=== PATIENT | male | born 1955 | race Caucasian/White ===

== ENCOUNTER 2025-02-10 21:57 | Inpatient (IN) | payer MEDICAID, SELFPAY ==
[2025-02-10 14:41] VITALS: BP 151/91
[2025-02-10 15:15] LABS: Hematocrit 39.5 % (39.0-52.0); Hemoglobin 12.4 g/dL (13.0-18.0); Mean Corp Hgb Conc. 31.4 g/dL (33.0-37.0); Mean Corpuscular Volume 85.7 fL (80.0-94.0); Nucleated Red Blood Cells % 0 % (-); Platelet Count 455 10^3/uL (130-400); Red Cell Dist. Width 14.4 % (11.5-14.5)
[2025-02-10 15:23] LABS: COVID-19 Antigen Negative (Negative)
[2025-02-10 15:30] LABS: ALT (SGPT) 22 U/L (0-50); AST (SGOT) 19 U/L (17-59); Albumin 3.9 g/dl (3.5-5.0); Alkaline Phosphatase 130 U/L (38-126); Blood Urea Nitrogen 17 mg/dl (9-20); Calcium 9.2 mg/dl (8.4-10.2); Carbon Dioxide 22 mmol/L (22-30); Chloride 103 mmol/L (98-107); Glucose 136 mg/dl (70-99); Potassium 4.5 mmol/L (3.5-5.1); Sodium 137 mmol/L (135-145); Total Protein 7.3 g/dl (6.3-8.2); eGFR > 60.00
--- NOTE | 2025-02-10 16:19 | ED.GENMED ---
History of Present Illness
<Diana Currie NP - Last Filed: 02/10/25 22:39>
General
Chief Complaint: Breathing Problem
Source: patient
Exam Limitations: none
Time Seen by Provider: 02/10/25 16:13
Nursing documentation reviewed up to this point in time: agreed with
History of Present Illness
History of Present Illness:
Patient to emergency department for evaluation of shortness of breath. States symptoms for started approximately 2 weeks ago. He denies any fever or chills. Reports that his shortness of breath continues to worsen. He now reports dizziness when
he stands. Brought to the emergency department by EMS for evaluation.
Past History
<Diana Currie CAN FILLER - Last Filed: 02/10/25 22:39>
Past History
ED Past Medical History: Psychiatric (Depression)
Review of Systems
<Diana Currie NP - Last Filed: 02/10/25 22:39>
Review of Systems
Allergies reviewed?: Yes
All Other Systems: ROS reviewed and negative except as documented in HPI and ROS
Constitutional: Reports fatigue
EENT: Reports no symptoms
Respiratory: Reports cough and trouble breathing
Cardiac: Reports no symptoms
ABD/GI: Reports no symptoms
: Reports no symptoms
Musculoskeletal: Reports no symptoms
Neurological: Reports dizzy and weakness
Psychiatric: Reports no symptoms
Phy Exam
<Diana Currie CAN FILLER - Last Filed: 02/10/25 22:39>
General Physical Exam
General Presentation: moderate distress
General age: appears stated age
General Skin: warm and dry
General Habitus: normal
General Mental: alert
Cardiovascular Exam
Cardiovascular Exam: regular rate/rhythm and no edema
Pulmonary Exam
Pulmonary Exam: chest non tender and decreased breath sounds (Bilateral lower lobes)
Gastrointestinal Exam
Gastrointestinal Exam: non tender and soft
Musculoskeletal Exam
Musculoskeletal Exam: full ROM and neuro vasc intact
Skin Exam
Skin Exam: normal color, warm/dry and no rash
Psychiatric Exam
Psychiatric Exam: normal mood/affect
Scores
<Diana Currie CAN FILLER - Last Filed: 02/10/25 22:39>
Heart Failure Risk
Heart Failure Risk Score: Not Applicable
Course
<Diana Currie CAN FILLER - Last Filed: 02/10/25 22:39>
Orders/Labs/Results
Orders:
Orders
02/10/25 14:44
Electrocardiogram (*1) Urgent
Reason for Study: Shortness of Breath
02/10/25 14:45
EKG- Treatment ONCE
CR Chest - 2 Views Urgent
Comment:
Reason For Exam: shortness of breath
02/10/25 14:58
COVID-19 Antigen Urgent
Source: Nasal Swab
Complete Blood Count/With Diff Urgent
Comprehensive Metabolic Panel Urgent
Influenza A+B Rapid Molecular Urgent
ANA Source: Nasal Swab
Specimen Description:
02/10/25 16:42
Troponin I Urgent
02/10/25 16:[address] [CT Chest PE Study] Urgent
Comment:
Reason For Exam: chest pain/SOB
02/10/25 20:33
CefTRIAXone [Rocephin] 1,000 mg IV NOW STA
Doxycycline [Vibramycin] 100 mg PO NOW STA
02/10/25 21:13
Admit/Transfer Patient As Directed
Co-Sign Provider:
Level of Care: Inpatient admission
Assign to:: Medical/Surgical
Physician / Group: Juan R
Diagnosis: Multifocal Pneumonia
Reason for Hospitalization: Multifocal Pneumonia
Expected length of stay greater than two midnights?: Yes
ELOS- Estimated Length of Stay in days: 2
I certify the patient meets the requirements for IP care: Yes
02/10/25 21:14
PRN Pain Medication Management As Directed
May give lesser potent ordered pain med per pt: Yes
preference::
Protocol:: Medication orders for pain may be administered in a
manner that supports deferring to patient preference
when the pt is:
- Requesting an ordered lesser potent pain medication.
Least to most potent pain medications are defined
as: acetaminophen < NSAID < tramadol < opioids
(morphine, oxycodone, hydromorphone).
- Requesting a lesser dose of the same medication IF
ORDERED.
- Requesting a less intrusive route of administration
if both routes are prescribed by the provider (PO <
IV).
02/10/25 21:15
Code Status As Directed
Resuscitation Status: Full Code
Abnormal Lab Results
02/10/25
14:58
WBC 10.9 H 10^3/uL
(4.8-10.8)
RBC 4.61 L 10^6/uL
(4.70-6.10)
Hgb 12.4 L g/dL
(13.0-18.0)
MCH 26.9 L pg
(27.0-31.0)
MCHC 31.4 L g/dL
(33.0-37.0)
Plt Count 455 H 10^3/uL
(130-400)
Abs Immat Gran (auto) 0.1 H 10^3/uL
(0-0.05)
Absolute Neuts (auto) 7.5 H 10^3/uL
(1.4-6.5)
Absolute Monos (auto) 0.7 H 10^3/uL
(0.1-0.6)
Glucose 136 H mg/dl
(70-99)
Alkaline Phosphatase 130 H U/L
(38-126)
02/10/25 14:58
02/10/25 14:58
Vital Signs
Initial and Last Documented VS:
Initial Vital Signs
Temp Pulse Resp BP Pulse Ox
97.7 F 108 22 151/91 99
02/10/25 14:41 02/10/25 14:41 02/10/25 14:41 02/10/25 14:41 02/10/25 14:41
Last Documented Vital Signs
Temp Pulse Resp BP Pulse Ox
98.5 F 66 21 116/74 98
02/10/25 16:45 02/10/25 18:45 02/10/25 18:45 02/10/25 17:00 02/10/25 18:45
<Nohemy Woodard MD - Last Filed: 02/10/25 20:15>
Orders/Labs/Results
Orders:
Orders
02/10/25 14:44
Electrocardiogram (*1) Urgent
Reason for Study: Shortness of Breath
02/10/25 14:45
EKG- Treatment ONCE
CR Chest - 2 Views Urgent
Comment:
Reason For Exam: shortness of breath
02/10/25 14:58
COVID-19 Antigen Urgent
Source: Nasal Swab
Complete Blood Count/With Diff Urgent
Comprehensive Metabolic Panel Urgent
Influenza A+B Rapid Molecular Urgent
ANA Source: Nasal Swab
Specimen Description:
02/10/25 16:42
Troponin I Urgent
02/10/25 16:[address] [CT Chest PE Study] Urgent
Comment:
Reason For Exam: chest pain/SOB
02/10/25 20:33
CefTRIAXone [Rocephin] 1,000 mg IV NOW STA
Doxycycline [Vibramycin] 100 mg PO NOW STA
02/10/25 21:13
Admit/Transfer Patient As Directed
Co-Sign Provider:
Level of Care: Inpatient admission
Assign to:: Medical/Surgical
Physician / Group: Juan R
Diagnosis: Multifocal Pneumonia
Reason for Hospitalization: Multifocal Pneumonia
Expected length of stay greater than two midnights?: Yes
ELOS- Estimated Length of Stay in days: 2
I certify the patient meets the requirements for IP care: Yes
02/10/25 21:14
PRN Pain Medication Management As Directed
May give lesser potent ordered pain med per pt: Yes
preference::
Protocol:: Medication orders for pain may be administered in a
manner that supports deferring to patient preference
when the pt is:
- Requesting an ordered lesser potent pain medication.
Least to most potent pain medications are defined
as: acetaminophen < NSAID < tramadol < opioids
(morphine, oxycodone, hydromorphone).
- Requesting a lesser dose of the same medication IF
ORDERED.
- Requesting a less intrusive route of administration
if both routes are prescribed by the provider (PO <
IV).
02/10/25 21:15
Code Status As Directed
Resuscitation Status: Full Code
Abnormal Lab Results
02/10/25
14:58
WBC 10.9 H 10^3/uL
(4.8-10.8)
RBC 4.61 L 10^6/uL
(4.70-6.10)
Hgb 12.4 L g/dL
(13.0-18.0)
MCH 26.9 L pg
(27.0-31.0)
MCHC 31.4 L g/dL
(33.0-37.0)
Plt Count 455 H 10^3/uL
(130-400)
Abs Immat Gran (auto) 0.1 H 10^3/uL
(0-0.05)
Absolute Neuts (auto) 7.5 H 10^3/uL
(1.4-6.5)
Absolute Monos (auto) 0.7 H 10^3/uL
(0.1-0.6)
Glucose 136 H mg/dl
(70-99)
Alkaline Phosphatase 130 H U/L
(38-126)
02/10/25 14:58
02/10/25 14:58
Vital Signs
Initial and Last Documented VS:
Initial Vital Signs
Temp Pulse Resp BP Pulse Ox
97.7 F 108 22 151/91 99
02/10/25 14:41 02/10/25 14:41 02/10/25 14:41 02/10/25 14:41 02/10/25 14:41
Last Documented Vital Signs
Temp Pulse Resp BP Pulse Ox
98.5 F 66 21 116/74 98
02/10/25 16:45 02/10/25 18:45 02/10/25 18:45 02/10/25 17:00 02/10/25 18:45
<Diana Currie NP - Last Filed: 02/10/25 22:39>
*Radiology
Radiology exam reviewed: radiology read reviewed
*Pulse Oximetry
SaO2: 99
Oxygen Mode of Delivery: Room air
Patient hypoxic: no
*Critical Care Note
Total Time (30-74mins, 75-104mins- exclusive of procedures): Not Applicable
<Diana Currie NP - Last Filed: 02/10/25 22:39>
Update Note
Update Note:
Patient to the emergency department with complaint of worsening shortness of breath cough and weakness. He states his symptoms started approximately 2 weeks ago but have become much worse over the past couple days. Today he reports difficulty with
his activities due to shortness of breath. He denies fever or chills. Reports SOTO with minimal activity. Tachypneic. Vital signs are stable pulse ox 97% room air. Labs reviewed WBC 10.9. Chest x-ray reviewed. Focal area of increased density
noted right midlung, pneumonia versus mass. He was sent for CT of the chest. Probable moderate right lower lobe and mild right upper lobe pneumonia. Discussed findings with patient. Will admit to the hospitalist. IV antibiotics started in
department.
ED Attending Note
<Diana Currie NP - Last Filed: 02/10/25 22:39>
-
Portions of this chart may have been created with voice recognition software.� Occasional wrong word or��sound alike� substitutions may have occurred due to the inherent limitations of voice recognition software.
<Nohemy Woodard MD - Last Filed: 02/10/25 20:15>
ED Attending Note
Patient seen and examined by attending physician: Yes
I performed the substantive portion of visit, reviewed & personally made and approve the management plan that is documented in note by myself or SILVANA.: Yes
ED Attending Note:
Patient appears nontoxic but slightly flushed. Patient's heart rate sounds normal. Patient has mild crackles on lung exam
Discharge Plan
Departure
Patient Disposition: Admit
Date of Disposition: 02/10/25
Time of Disposition: 20:35
Presentation/result/management discussed w/ accepting MD/DO: Hospitalist
Condition: Fair
Covid-19: Not Applicable
Discharge Problem:
Pneumonia
Interventions
Interventions:
*Risk Screen - Suicide Last Done: 02/10/25 14:44
*General Assessment Last Done: 02/10/25 16:45
*Neglect/Abuse Screening Last Done: 02/10/25 14:44
*ED- Fall Risk Assessment Last Done: 02/10/25 16:45
*ED COVID-19 Vaccine History Last Done: 02/10/25 16:45
*ED Influenza Vaccine History Last Done: 02/10/25 16:45
ED- Cardiac Assessment Last Done: 02/10/25 16:45
ED- Pulmonary Assessment Last Done: 02/10/25 16:45
[2025-02-10 16:43] VITALS: BMI 22.2
[2025-02-10 16:45] VITALS: BP 141/83
[2025-02-10 17:00] VITALS: BP 116/74
[2025-02-10 17:17] LABS: Troponin I 0.024 ng/ml
--- NOTE | 2025-02-10 21:19 | HPS.HSE ---
Family Physician
-
Family Physician: * NONE
Chief Complaint
-
SOB
History of Present Illness
Patient is a 69y M with PMH significant for generalized anxiety who presents to ED complaining of shortness of breath, exercise intolerance, anorexia and weight loss. Patient states that his symptoms started about 2 weeks ago and have been
progressive since that time. He has minimal, non-productive cough. No chest pain. He reports poor appetite with significant weight loss. He denies any fevers / chills. Patient presented to the ED today for further evaluation.
Medical History
Past Medical History
Past Medical History: Reports Other
Additional Past Medical History:
Anxiety
Past Surgical History: Reports Other
Additional Past Surgical History:
Right Humerus ORIF
Social History
Tobacco: Non-smoker
Alcohol: None
Drug: None
Family History
Family History: Not pertinent
Allergies / Home Medications
Allergies reflects when Allergies were last updated in [email or web address].
Home Medications with original date entered in [facility]
Allergy/Medication List:
Allergies
Allergy/AdvReac Type Severity Reaction Status Date / Time
No Known Allergies Allergy Verified 02/10/25 14:43
Home Medications
bupropion HCl 300 mg 24 hr tablet, extended release (Wellbutrin XL) 300 mg PO DAILY Mental Health/Anxiety 02/10/25
citalopram 40 mg tablet (Celexa) 40 mg PO DAILY Mental Health/Anxiety 02/10/25
doxepin 75 mg capsule 75 mg PO HS Sleep 02/10/25
gabapentin 600 mg tablet 600 mg PO TID Neurological Condition 02/10/25
Review of Systems
-
History Source: Patient
A 12 point ROS was completed and negative except as noted: Yes
Constitutional: Reports Weight Loss and Fatigue; Denies Fever or Chills
EENT: Denies Sore Throat
Respiratory: Reports Cough and Trouble Breathing; Denies Hemoptysis
Cardiac: Denies Chest Pain or Palpitations
Abdomen/GI: Reports Anorexia; Denies Abdominal Pain, Nausea, Vomiting or Diarrhea
: Denies Dysuria or Frequency
Musculoskeletal: Denies Joint Pain or Edema
Neurological: Denies Dizzy or Headache
Psych: Denies Depression or Anxiety
Physical Exam
Vital Signs
Vital Signs
Temp Pulse Resp BP Pulse Ox
98.5 F 66 21 116/74 98
02/10/25 16:45 02/10/25 18:45 02/10/25 18:45 02/10/25 17:00 02/10/25 18:45
Physical Exam
General: Other (69y M in no acute distress.)
HEENT: Moist mucous membranes and PERRLA
Respiratory: Other (Decreased BS at the R base. No W/R/R.)
Cardiac: S1/S2 and Regular Rhythm; No Murmur
GI: Soft, Non Tender, Non Distended and Normal Bowel Sounds
Musculoskeletal: No Clubbing, No Cyanosis and No Edema
Neuro: AO x 3
Laboratory Results
-
02/10/25 14:58
02/10/25 14:58
Laboratory Results
Total Bilirubin 0.6 mg/dl (0.2-1.3) 02/10/25 14:58
AST 19 U/L (17-59) 02/10/25 14:58
ALT 22 U/L (0-50) 02/10/25 14:58
Alkaline Phosphatase 130 U/L (38-126) H 02/10/25 14:58
Troponin I 0.024 ng/ml 02/10/25 16:42
Impression/Plan
-
A/P: Patient is a 69y M with PMH significant for anxiety who presents to ED complaining of shortness of breath, weakness and weight loss x 2 weeks.
Multifocal Pneumonia
- Admit for further evaluation and treatment.
- CT scan shows opacity in the RLL with extension into the RUL. Underlying mass not completely excluded. No local adenopathy.
- Abx for CAP coverage.
- Supportive care, nebs, mucolytics, etc.
- Follow for clinical improvement.
- Consider repeat CT scan in several weeks to document clearing / asses for possible underlying mass - especially given weight loss and atypical symptoms.
Anxiety
- Continue current home medications.
DVT Prophylaxis: Lovenox
Code Status: Full
[2025-02-10] MEDS: ROCEPHIN 1000 MG IV (21:30)
[2025-02-10] MEDS: VIBRAMYCIN 100 MG PO (21:30)
[2025-02-10 22:59] VITALS: BMI 23.8
[2025-02-10 23:02] VITALS: BP 146/76
[2025-02-10] MEDS: NEURONTIN 600 MG PO (23:57)
[2025-02-10] MEDS: SINEQUAN 75 MG PO (23:57)
[2025-02-10] MEDS: NSS 1000 IV (23:58)
--- NOTE | 2025-02-11 01:08 | PTCARENOTE ---
Patient received from ED via stretcher and walked into room with assist x1. He was oriented to room and surroundings. Breath sounds are decreased throughout with SOTO. Sat 99% on room air. HRR. Voiding in bathroom. IVF per order. Patient
denies pain. Call foster in reach.
--- NOTE | 2025-02-11 03:51 | W.PN.UPDATE ---
Update Note
Progress Note Update
pt told nurse that he takes neurontin 800mg hs and 400mg daily am. Per med review pt filled 600mg TID on 12/30/24. Asked pt to take pic of med label from home or bring it in to confirm. Will keep 600mg TID for now.
[2025-02-11 06:00] VITALS: BMI 24.0
[2025-02-11 07:00] VITALS: BP 125/62
[2025-02-11 07:20] LABS: Hematocrit 32.9 % (39.0-52.0); Hemoglobin 10.2 g/dL (13.0-18.0); Mean Corp Hgb Conc. 31.0 g/dL (33.0-37.0); Mean Corpuscular Volume 84.8 fL (80.0-94.0); Platelet Count 342 10^3/uL (130-400); Red Cell Dist. Width 14.6 % (11.5-14.5)
[2025-02-11] MEDS: MUCINEX 1200 MG PO (07:26)
[2025-02-11] MEDS: CELEXA 40 MG PO (07:27)
[2025-02-11] MEDS: WELLBUTRIN XL (24 hour extended release) 300 MG PO (07:27)
[2025-02-11] MEDS: VIBRAMYCIN 100 MG PO (07:27)
[2025-02-11] MEDS: NEURONTIN 600 MG PO (07:27)
[2025-02-11 07:53] LABS: Blood Urea Nitrogen 14 mg/dl (9-20); Calcium 8.4 mg/dl (8.4-10.2); Carbon Dioxide 26 mmol/L (22-30); Chloride 104 mmol/L (98-107); Estimated Creatinine Clearance 72 ml/min; Glucose 94 mg/dl (70-99); Potassium 4.1 mmol/L (3.5-5.1); Sodium 137 mmol/L (135-145); eGFR > 60.00
[2025-02-11] MEDS: NSS 1000 IV (09:56)
[2025-02-11 10:24] LABS: Hepatitis C Antibody Negative (Negative)
--- NOTE | 2025-02-11 11:09 | W.PN.HOSP.TC ---
Today's Communication/Plan
-
IV abx
check mag/phos
anemia panel
stop IVF later
cont w/Abx
Assessment / Plan
Assessment / Plan
General: looks older than stated age
HEENT: Moist mucous membranes
Respiratory: mild rhonchi R>L
Cardiac: S1/S2 and Regular Rhythm; No Murmur
GI: Soft, Non Tender, Non Distended and Normal Bowel Sounds
Musculoskeletal: No Clubbing, No Cyanosis and No Edema
Neuro: AO x 3
A/P: Patient is a 69y M with PMH significant for anxiety who presents to ED complaining of shortness of breath, weakness and weight loss x 2 weeks.
Multifocal Pneumonia
- CT scan shows opacity in the RLL with extension into the RUL. Underlying mass not completely excluded. No local adenopathy.
- Abx for CAP coverage.
- Supportive care, nebs, mucolytics, etc.
- Follow for clinical improvement.
- Consider repeat CT scan in several weeks to document clearing / asses for possible underlying mass - especially given weight loss and atypical symptoms.
- Check strep/legionella. sputum sample if able to provide it
Anxiety
- Continue current home medications.
Weakness
-drop in hgb likely 2/2 IVF
-check anemia panel. Does not have pcp. CM c/s to provide list of pcp-Family medicine residency clinic encourage.
-check mag/phos/anemia panel.
-PT eval
DVT Prophylaxis: Lovenox
Code Status: Full
Anticipated Discharge: Within 24 hours
Subjective/Interval History
-
Date of Service: February 11, 2025
states feeling wiped out
states of dry cough
decrease appetite at home.
Objective Data
-
Labs:
Laboratory Results
02/11/25
06:51
WBC 10.5
Hgb 10.2 L
Hct 32.9 L
Plt Count 342 D
Sodium 137
Potassium 4.1
Chloride 104
Carbon Dioxide 26
BUN 14
Creatinine 1.0
Glucose 94
Calcium 8.4
Vital Signs:
Vital Signs
Temp Pulse Resp BP Pulse Ox
97.9 F 63 16 125/62 94
02/11/25 07:00 02/11/25 07:00 02/11/25 07:00 02/11/25 07:00 02/11/25 07:00
I&O
02/10/25 02/11/25 02/12/25
06:59 06:59 06:59
Intake Total 700 / 700 120 / 120
Output Total 200 / 200
Balance 500 / 500 120 / 120
Data Reviewed
-
Total Time Spent with Patient (in minutes): 55
[2025-02-11 11:32] LABS: Iron 34 ug/dl (49-181); Magnesium 1.9 mg/dl (1.6-2.3)
[2025-02-11 11:41] LABS: Total Iron Binding Capacity 205 ug/dl (261-462)
[2025-02-11 12:08] LABS: Ferritin 184.0 ng/ml (17.9-464.0)
[2025-02-11 12:39] LABS: Folate 8.6 ng/ml (2.76-20); Vitamin B12 448 pg/ml (239-931)
[2025-02-11 13:38] VITALS: BP 125/67; PULSE 67; O2SAT 98
--- NOTE | 2025-02-11 14:07 | CM ---
Addendum entered by Genesis Whitehead 02/11/25 17:04:
Pt discharged home, no needs, Very agitated, angry and unable to received IMM information.
Original Note:
IA completed at bedside. Pt lives in an apartment, alone. Indiependent in ADLs Nd IADLs. No hx of HH, SNF, home O2. DME: has grab bars on the BR. No insecurities identified. NO PCP. Confirmed Rx. [facility] has that the pt's insurance is [employer]. Pt states he has Medicare and produced his card. Copy of card placed in chart
Residency clinic brochure given to pt to select a PCP
PRovided choices for VN, pt chose [facility]. Referral placed
Plan: Home no needs
[2025-02-11 15:00] VITALS: BP 112/59
[2025-02-11 15:41] VITALS: BMI 24.0
--- NOTE | 2025-02-11 17:04 | PTCARENOTE ---
Patient agitated when RN gave DC paperwork, verbalizing that the and this RN did not take care of his issues. Patient educated on the importance of picking up his medications from the pharmacy and taking his medications as prescribed. He was
instructed on the importance of following up with providers for further studies. Patient agreed and signed DC paper work. Escorted to ER entrance by PCT.
--- NOTE | 2025-02-11 17:37 | W.DCSUMMARY ---
Discharge Summary
Discharge Data
Date of Admission: 02/10/25
Date of Discharge: 02/11/25
-
Pending Results: No
Hospital Course
69-year-old male past medical history of anxiety is presenting from home with shortness of breath and weakness. Patient on multiple anxiety medication and does not follow regularly with primary care doctor. Patient upon admission was found to have
anemia on the CAT scan. Patient was already on antibiotics. Patient was stable on room air not requiring oxygen. Patient was afebrile. Blood pressure was stable. Patient was started on IV fluid which was eventually discontinued. Patient was
tolerating diet. Patient was able to ambulate with physical therapy without any difficulty. Patient vital signs were stable. Patient had mild elevation in WBC on admission which resolved. Patient was recommended to follow-up/make appointment
with primary care physician and recommended family medicine residency clinic for earlier follow-up. Recommended repeat CAT scan pending resolution of infection to rule out any underlying mass per CAT scan report. Patient iron, B12, folate and
magnesium phosphorus was normal. Patient be discharged home.
Discharge Plan
-
Patient Disposition: Home (Routine Discharge)
Discharge Diagnosis/Procedures: Multifocal pneumonia
Weakness
Condition: Fair
Diet: Regular
Activity: As tolerated
Driving Restrictions: As prior to admission
Others Tests: Repeat CT chest in 2-4 weeks to assess resolution of pneumonia and rule out underlying mass
Other Services: VN
Activity Restrictions/Additional Instructions:
Recommend flu shot in 2-3 weeks.
Instructions: Community-acquired pneumonia in adults
Referrals:
[facility] [Other, Family Practice] - in less than 1 week
Referral Note: new patient and f/u for pneumonia. Call to make appt.
NONE,* [Family Provider, Internal Medicine]
Keith Matta MD [Active, Pulmonary Medicine]
Prescriptions:
New
doxycycline hyclate 100 mg Capsule
100 mg PO Q12 4 Days Qty: 8 0RF
cefdinir 300 mg capsule
300 mg PO Q12H Qty: 8 0RF
Continued
citalopram [Celexa] 40 mg Tablet
40 mg PO DAILY
gabapentin 600 mg Tablet
400 mg PO DAILY
Rx Instructions:
Patient states takes 400mg in am and 800mg at HS
doxepin 75 mg Capsule
75 mg PO HS
bupropion HCl [Wellbutrin XL] 300 mg Tablet Extended Release 24 Hr
300 mg PO DAILY
Discharge Orders:
Discharge Patient (As Directed); Ordered 02/11/25
Ordered By: Emir Ram
Discharge Date and Time
Discharge Date/Time: 02/11/25 17:26
Print Language: MOROCCAN
== END 2025-02-11 17:26 | disposition home or self-care (01) | DRG 195 ==
LOC: 4 EAST ACU 21:57
PROVIDERS: Nurse Practitioner; ADMITTING PHYSICIAN Hospitalist; ATTENDING PHYSICIAN Hospitalist; EMERGENCY PHYSICIAN Emergency Medicine
DX: J18.9 Pneumonia, unspecified organism (principal); F41.1 Generalized anxiety disorder; F32.A Depression, unspecified; D64.9 Anemia, unspecified; Z79.899 Other long term (current) drug therapy; Z11.52 Encounter for screening for COVID-19
CPT/HCPCS: 71046; 71275; 80048; 80053; 82607; 82728; 82746; 83540; 83550; 83735; 84100; 84484; 85025; 85027; 86803; 87502; 87811; 93005; 97161; 99285; Q9967

== ENCOUNTER 2025-03-08 19:08 | Emergency (ER) | payer MEDICARE, SELFPAY ==
[2025-03-08 19:09] VITALS: BP 124/61
[2025-03-08 19:10] VITALS: BP 124/61
--- NOTE | 2025-03-08 19:47 | ED.GENMED ---
History of Present Illness
General
Chief Complaint: Urinary Symptoms
Source: patient
Time Seen by Provider: 03/08/25 19:29
History of Present Illness
History of Present Illness:
69-year-old male presents via EMS from home with chief complaint of inability urinate for the past 24 hours. He states in significant discomfort in his bladder. He feels like he has a full bladder void. Over the past 2 weeks he has been dribbling
not getting a good stream. He denies any blood in the urine. He was here about a month ago for pneumonia. No fevers no flank pain no hematuria. No other complaints
Past History
Past History
ED Past Medical History: Psychiatric (Depression)
Phy Exam
Physical Exam
Physical Exam:
General: Well-appearing male no acute respiratory distress
HEENT normal cephalic atraumatic abdomen soft suprapubic tenderness is noted mild suprapubic distention is noted
Extremities: No cyanosis
Course
Orders/Labs/Results
Orders:
Orders
03/08/25 19:47
Chappell Placement- Treatment ONCE
Reason for insertion: Acute Retention
03/08/25 20:07
Lidocaine 2% [Lidocaine Uro-Jet 2%] 1 syringe .ROUTE .[facility]
03/08/25 20:08
Lidocaine 2% [Lidocaine Uro-Jet 2%] 1 syringe TOPICAL NOW STA
Vital Signs
Initial and Last Documented VS:
Initial Vital Signs
BP
124/61
03/08/25 19:09
Last Documented Vital Signs
Temp Pulse Resp BP Pulse Ox
98.1 F 77 16 129/69 98
03/08/25 19:10 03/08/25 20:15 03/08/25 20:15 03/08/25 20:00 03/08/25 20:15
MDM/Problems Addressed
Differential Diagnosis Includes:
Inability to urinate for 24 hours. His history suggests the prostate issue given the dribbling recently. Bedside bladder scan was performed which demonstrated 191 mL however clinically I suspect acute retention. Will place Chappell cath
*Pulse Oximetry
SaO2: 98
Oxygen Mode of Delivery: Room air
Patient hypoxic: no
*Critical Care Note
Total Time (30-74mins, 75-104mins- exclusive of procedures): Not Applicable
Update Note
Update Note:
Chappell catheter was inserted and drained approximately 500 mL of urine out of the bladder. Patient is feeling better. Will be referred to urology for follow-up. Discharged home
ED Attending Note
-
Portions of this chart may have been created with voice recognition software.� Occasional wrong word or��sound alike� substitutions may have occurred due to the inherent limitations of voice recognition software.
Discharge Plan
Departure
Patient Disposition: Home (Routine Discharge)
Date of Disposition: 03/08/25
Time of Disposition: 21:04
Patient with high blood pressure during this ER visit?: No
Discharge Problem:
Acute urinary retention
Instructions: How to Care for Your Chappell Catheter, Male
Prescriptions:
No Action
citalopram [Celexa] 40 mg Tablet
40 mg PO DAILY
gabapentin 600 mg Tablet
400 mg PO DAILY
Rx Instructions:
Patient states takes 400mg in am and 800mg at HS
doxepin 75 mg Capsule
75 mg PO HS
bupropion HCl [Wellbutrin XL] 300 mg Tablet Extended Release 24 Hr
300 mg PO DAILY
doxycycline hyclate 100 mg Capsule
100 mg PO Q12 4 Days Qty: 8 0RF
cefdinir 300 mg capsule
300 mg PO Q12H Qty: 8 0RF
Referrals:
Brunilda White MD [Active, Urology]
UNKNOWN - PT NOT,INTERVIEWE [Family Provider]
Activity Restrictions/Additional Instructions:
Empty your urine today as needed. Follow-up with urology for further evaluation
Interventions
Interventions:
*Risk Screen - Suicide Last Done: 03/08/25 19:10
*General Assessment Last Done: 03/08/25 19:10
*Neglect/Abuse Screening Last Done: 03/08/25 19:10
*ED COVID-19 Vaccine History Last Done: 03/08/25 19:10
*ED Influenza Vaccine History Last Done: 03/08/25 19:10
[facility] Fall Risk Assessment Tool Last Done: 03/08/25 19:10
ED-Male Genitourinary Assessment Last Done: 03/08/25 19:10
Discharge Date and Time
Print Language: THAI
[2025-03-08 20:00] VITALS: BP 129/69
[2025-03-08] MEDS: LIDOCAINE URO-JET 2% 1 SYRINGE TOPICAL (20:08)
== END 2025-03-08 21:42 | disposition home or self-care (01) ==
LOC: EMR 19:08
PROVIDERS: EMERGENCY PHYSICIAN Emergency Medicine
DX: R33.9 Retention of urine, unspecified (principal)
CPT/HCPCS: 99283; 51702